=== PATIENT | female | born 1995 | race Caucasian/White ===

== ENCOUNTER 2016-09-18 15:22 | Emergency (ER) | payer MEDICAID ==
[~2016-09-18] VITALS: Ht 170.2 cm; Wt 81.2 kg
[2016-09-18 15:29] VITALS: BP 105/74
--- NOTE | 2016-09-18 15:45 | NUR ---
Pt taken to bed 4.
--- NOTE | 2016-09-18 15:46 | NUR ---
20/M presents to ED for evaluation of suprapubic pain x 3 months accompanied with yellow discharge. Patient describes the pain as sharp, intermittent, 10/10, non radiating pain. Patient also c/o burning and dysuria. Pt explains she has painful intercourse and states "It feels like a worse sharp pain almost like a cramping pain." Denies N/V/D. Denies any fever or chills. Patient is AOX4, ambulatory with steady gait. VSS.
--- NOTE | 2016-09-18 16:24 | NUR ---
Female director targeted marketing accompanied female patient for pelvic exam. Pelvic exam performed by Dr. Pham with myself at bedside for entire examination. Patient tolerated procedure well. Patient assisted to position of comfort after examination.
[2016-09-18] MEDS ORDERED: cefTRIAXone 250 MG in LIDOCAINE 1% ED 0.9 ML IM ONE (16:25)
[2016-09-18 16:50] VITALS: BP 115/71
--- NOTE | 2016-09-18 16:52 | NUR ---
Chart checked and completed. The patient's care was reviewed and supervised by Aquiles Manning RN.
== END 2016-09-18 16:51 | disposition home or self-care (01) ==
LOC: MED 15:27
DX: N73.9 Female pelvic inflammatory disease, unspecified (principal); F17.210 Nicotine dependence, cigarettes, uncomplicated
CPT/HCPCS: 81002; 81025; 96372; 99283; J0696; J2001

== ENCOUNTER 2017-01-01 16:21 | Emergency (ER) | payer MEDICAID ==
[~2017-01-01] VITALS: Ht 167.6 cm; Wt 77.1 kg
[2017-01-01 16:42] VITALS: BP 124/52
--- NOTE | 2017-01-01 16:50 | NUR ---
Patient to bed 08.
--- NOTE | 2017-01-01 16:51 | NUR ---
21/F BIB C/O N/V & HEADACHE X 5DAYS.SKIN IS PINK/WARM/DRY; AAOX4 WITH EVEN AND STEADY GAIT; LUNGS CLEAR BL; HR EVEN AND REGULAR; PT DENIES ANY FEVER, CP, SOB, OR COUGH AT THIS TIME; PATIENT STATES PAIN OF 10/10 AT THIS TIME; VSS; PATIENT POSITIONED FOR COMFORT; HOB ELEVATED; BEDRAILS UP X2; BED DOWN. ER MD MADE AWARE OF PT STATUS.
--- NOTE | 2017-01-01 16:58 | NUR ---
ER PA DR MONGE EVALUATING PT AT BEDSIDE
--- NOTE | 2017-01-01 17:00 | NUR ---
Patient appears to be resting comfortably in bed. Vital Signs within normal limits. Respirations even and unlabored.WILL CONTINUE TO MONITOR
[2017-01-01] MEDS ORDERED: METOCLOPRAMIDE 10 MG TAB PO ONE (17:05)
[2017-01-01] MEDS ORDERED: KETOROLAC 30 MG/ML VIAL IM ONE (17:05)
[2017-01-01 18:21] VITALS: BP 108/85
--- NOTE | 2017-01-01 18:21 | NUR ---
Patient discharged with v/s stable. Written and verbal after care instructions given and explained. Patient alert, oriented and verbalized understanding of instructions. Ambulatory with steady gait. All questions addressed prior to discharge. ID band removed. Patient advised to follow up with PMD. Rx of ZOFRAN ODT ,IBUPROFEN & NORCO given. Patient educated on indication of medication including possible reaction and side effects. Opportunity to ask questions provided and answered.
== END 2017-01-01 18:21 | disposition home or self-care (01) ==
LOC: MED 16:21
DX: R51 Headache (principal)
CPT/HCPCS: 81002; 81025; 96372; 99283; J1885; J8597; Q0163

== ENCOUNTER 2020-02-19 14:17 | Emergency (ER) | payer OTHER ==
[~2020-02-19] VITALS: Ht 170.2 cm; Wt 95.7 kg
[2020-02-19 14:20] VITALS: BP 122/78
--- NOTE | 2020-02-19 14:30 | NUR ---
PT C/O SOB, CHEST PRESSURE, MILD DRY COUGH, AND BODY ACHES FOR 3 DAYS. REPORTS CLOSELY CONTACTED WITH HER MOTHER IN LAW WHO HAS BEEN DIAGNOSED WITH COVID INFECTION ONE WEEK AGO. DENIES FEVER, SORE THROAT, N/V/D.
--- NOTE | 2020-02-19 15:15 | NUR ---
covid swab obtained in the tent and walked to the lab.
[2020-02-19 15:20] VITALS: BP 110/71
--- NOTE | 2020-02-19 15:20 | NUR ---
Patient discharged with v/s stable. Written and verbal after care instructions given and explained. Patient alert, oriented and verbalized understanding of instructions. Ambulatory with steady gait. All questions addressed prior to discharge. ID band removed. Patient advised to follow up with PMD. Rx of Ibuprofen, Robitussin, Acetaminophen, Albuterol given. Patient educated on indication of medication including possible reaction and side effects. Opportunity to ask questions provided and answered.
== END 2020-02-19 15:20 | disposition home or self-care (01) ==
LOC: MED 14:17
DX: B34.9 Viral infection, unspecified (principal); Z20.828 Contact with and (suspected) exposure to other viral communicable diseases; J45.909 Unspecified asthma, uncomplicated
CPT/HCPCS: 99283; U0003